=== PATIENT | male | born 1980 | race Caucasian/White ===

== ENCOUNTER 2016-11-05 07:58 | Emergency (ER) | payer OTHER ==
[2016-11-05 08:09] VITALS: BP 138/89
== END 2016-11-05 08:39 | disposition left against medical advice (07) ==
LOC: ED 07:58
DX: Z53.21 Procedure and treatment not carried out due to patient leaving prior to being seen by health care provider (principal)

== ENCOUNTER 2018-07-15 12:49 | Emergency (ER) | payer SELFPAY ==
[~2018-07-15] VITALS: Ht 165.1 cm; Wt 68.2 kg
[2018-07-15 14:23] VITALS: BP 153/82
== END 2018-07-15 17:55 | disposition home or self-care (01) ==
LOC: ED 12:49
DX: M54.6 Pain in thoracic spine (principal)
CPT/HCPCS: J1885